=== PATIENT | male | born 1985 | race Caucasian/White ===

== ENCOUNTER 2021-06-08 17:05 | Emergency (ER) | payer SELFPAY ==
[~2021-06-08] VITALS: Ht 182.9 cm; Wt 75.0 kg
[2021-06-08 18:04] VITALS: BP 129/75
--- NOTE | 2021-06-08 18:09 | NUR ---
PT TO [facility]
[2021-06-08] MEDS ORDERED: CYCLOBENZAPRINE 10 MG TAB PO ONE (18:10)
[2021-06-08] MEDS ORDERED: KETOROLAC 30 MG/ML VIAL IM ONE (18:10)
[2021-06-08] MEDS ORDERED: NAPR-54 PO (18:12)
[2021-06-08] MEDS ORDERED: IBUP-2213 PO (18:12)
--- NOTE | 2021-06-08 18:26 | NUR ---
IM/OP MEDS GIVEN-NADR AT THIS TIME
[2021-06-08 18:30] VITALS: BP 129/75
[2021-06-08] MEDS ORDERED: CYCL-711 PO (18:32)
[2021-06-08] MEDS ORDERED: ACET-8386 PO (18:32)
[2021-06-08] MEDS ORDERED: DICL100G5 TP (18:32)
== END 2021-06-08 19:30 | disposition home or self-care (01) ==
LOC: MED 17:05
DX: S39.012A Strain of muscle, fascia and tendon of lower back, initial encounter (principal); Z79.899 Other long term (current) drug therapy; X58.XXXA Exposure to other specified factors, initial encounter; Y93.89 Activity, other specified; Y92.89 Other specified places as the place of occurrence of the external cause; Y99.8 Other external cause status
CPT/HCPCS: 81002; 96372; 99283; J1885

== ENCOUNTER 2023-05-17 22:35 | Emergency (ER) | payer BC ==
[~2023-05-17] VITALS: Ht 177.8 cm; Wt 72.6 kg
[~2023-05-17 22:35] MED LIST: ACET-8905 PO; CYCL-711 PO; DICL100G5 TP; IBUP-2213 PO; NAPR-54 PO
[2023-05-17] MEDS ORDERED: HYD1C TP (23:32)
[2023-05-17 23:39] VITALS: BP 128/91; PULSE 82; RESP 16; TEMP 97.8; O2SAT 99
[2023-05-17 23:48] VITALS: BP 128/91; PULSE 82; RESP 16; TEMP 97.8; O2SAT 99
== END 2023-05-17 23:48 | disposition home or self-care (01) ==
LOC: MED 22:35
DX: R21 Rash and other nonspecific skin eruption (principal); Z79.899 Other long term (current) drug therapy
CPT/HCPCS: 87491; 99283